=== PATIENT | male | born 1985 | race Caucasian/White ===

== ENCOUNTER 2017-03-18 23:25 | Emergency (ER) | payer SELFPAY ==
[~2017-03-18] VITALS: Ht 170.2 cm; Wt 75.0 kg
[2017-03-19] MEDS ORDERED: MORPHINE SULFATE 10 MG/ML CPJ IM ONE ×2 (04:45→06:30)
[2017-03-19] MEDS ORDERED: FENTANYL CITRATE/PF 50MCG/ML 2ML VIAL IV ONE (11:00)
[2017-03-19] MEDS ORDERED: PROPOFOL 200MG/20ML VIAL IV ONE (11:00)
[2017-03-19 13:51] VITALS: BP 120/79
== END 2017-03-19 13:58 | disposition home or self-care (01) ==
LOC: ER 23:25
DX: S53.005A Unspecified dislocation of left radial head, initial encounter (principal); X58.XXXA Exposure to other specified factors, initial encounter; Y93.89 Activity, other specified; Y99.8 Other external cause status; Y92.89 Other specified places as the place of occurrence of the external cause
CPT/HCPCS: 24600; 73070; 73110; 96372; 99152; 99285; J2270; J3010; Z7610; A4565; J2704